=== PATIENT | female | born 1975 | race African-American/Black ===

== ENCOUNTER 2023-01-16 20:35 | Emergency (ER) | payer MEDICAID, OTHER ==
[~2023-01-16] VITALS: Ht 170.2 cm; Wt 90.5 kg
[2023-01-16] MEDS ORDERED: ACETAMINOPHEN 325MG TABLET PO ONE (23:00)
[2023-01-16 23:30] VITALS: BP 144/103
[2023-01-16] MEDS ORDERED: CLONIDINE 0.2MG TABLET PO ONE (23:30)
[2023-01-17] MEDS ORDERED: TOPUD MT (01:09)
== END 2023-01-17 01:39 | disposition home or self-care (01) ==
LOC: ER 20:35
DX: R51.9 Headache, unspecified (principal); R07.89 Other chest pain; I10 Essential (primary) hypertension; Z98.890 Other specified postprocedural states; Z91.010 Allergy to peanuts; Y04.0XXA Assault by unarmed brawl or fight, initial encounter; Y93.89 Activity, other specified; Y92.89 Other specified places as the place of occurrence of the external cause; Y99.8 Other external cause status
CPT/HCPCS: 99283

== ENCOUNTER 2023-12-13 09:16 | Emergency (ER) | payer MEDICAID ==
[~2023-12-13] VITALS: Ht 170.2 cm; Wt 82.0 kg
[~2023-12-13 09:16] MED LIST: TOPUD MT
[2023-12-13 09:20] VITALS: O2SAT 94
[2023-12-13 09:51] VITALS: PULSE 96; RESP 20
[2023-12-13] MEDS: IPRATROPIUM/ALBUTEROL 0.5-3(2.5)MG/3ML NEB HHN ONE (09:51)
[2023-12-13 10:05] VITALS: PULSE 100; RESP 20
[2023-12-13] MEDS: ALBUTEROL (0.083%) 2.5MG/3ML NEB HHN ONE (10:05)
[2023-12-13] MEDS ORDERED: T3 PO (10:09)
[2023-12-13] MEDS: DEXAMETHASONE 4MG/ML 1ML VIAL IM ONE (10:40)
[2023-12-13 11:00] VITALS: BP 122/78; PULSE 69; RESP 17; TEMP 98.2
[2023-12-13] MEDS ORDERED: ALBU6.7H15 INH (11:01)
[2023-12-13] MEDS ORDERED: BUDE6.9H INH (11:01)
[2023-12-13] MEDS ORDERED: P50 MT (11:01)
== END 2023-12-13 11:24 | disposition home or self-care (01) ==
LOC: ER 09:16
DX: R06.02 Shortness of breath (principal); F41.9 Anxiety disorder, unspecified; I10 Essential (primary) hypertension
CPT/HCPCS: 94640; 93005; 96372; 99283; J1100; Z7610 ×3

== ENCOUNTER 2024-03-28 19:32 | Emergency (ER) | payer MEDICAID ==
[~2024-03-28] VITALS: Ht 170.2 cm; Wt 76.0 kg
[~2024-03-28 19:32] MED LIST changes: +ALBU6.7H15 INH; +ALD50 PO; +ASPI-1406 PO; +BUDE6.9H INH; +CLOP-31 PO; +FURO-151 MT; +LIP40 PO; +METO25TA6 MT; +POTA-205 MT; -TOPUD MT
[2024-03-28 19:42] VITALS: BP 133/97; PULSE 92; RESP 16; TEMP 98.1; O2SAT 100
== END 2024-03-28 20:43 | disposition home or self-care (01) ==
LOC: ER 19:41
DX: Z13.89 Encounter for screening for other disorder (principal); I10 Essential (primary) hypertension; Z86.73 Personal history of transient ischemic attack (TIA), and cerebral infarction without residual deficits; Z98.890 Other specified postprocedural states; Z91.010 Allergy to peanuts
CPT/HCPCS: 99281

== ENCOUNTER 2024-04-03 19:18 | Emergency (ER) | payer MEDICAID ==
[~2024-04-03] VITALS: Ht 170.2 cm; Wt 67.0 kg
[2024-04-03 19:30] VITALS: O2SAT 100
[2024-04-03 20:00] VITALS: TEMP 36.78072
[2024-04-03 20:26] LABS: CHLORIDE 103 mEq/L (98-107); POTASSIUM 3.5 mEq/L (3.5-5.1); SODIUM 139 mEq/L (136-145)
[2024-04-03 20:27] LABS: CARBON DIOXIDE 30 mEq/L (21-32)
[2024-04-03 20:28] LABS: CALCIUM 10.4 mg/dL (8.7-10.4)
[2024-04-03 20:32] LABS: BASOPHILS % 0.9 % (0.0-2.0); CREATININE 0.9 mg/dL (0.6-1.0); GLUCOSE 81 mg/dL (70-105); HEMATOCRIT. 44.3 % (36.0-48.0); HEMOGLOBIN. 14.7 g/dL (12.0-16.0); LYMPHOCYTES % 48.8 % (20.0-50.0); MEAN CORPUSCULAR HEMOGLOBIN 28.8 pg (28.0-32.0); MEAN CORPUSCULAR HGB CONC 33.2 g/dL (31.0-37.0); MEAN CORPUSCULAR VOLUME 86.5 fL (81.0-99.0); MEAN PLATELET VOLUME 9.3 fl (7.4-10.4); MONOCYTES % 8.4 % (2.0-8.0); NEUTROPHILS % 37.9 % (40.0-76.0); PLATELET 191 x1000/uL (130-400); RED BLOOD CELL COUNT 5.12 mill/uL (4.2-5.4); RED CELL DISTRIBUTION WIDTH 13.3 % (11.6-14.6); WHITE BLOOD COUNT 3.5 x1000/uL (4.5-11.0)
[2024-04-03 20:33] LABS: TROPONIN I HIGH SENSITIVITY 11 ng/L (3.0-34)
[2024-04-03 20:35] LABS: PHOSPHORUS 3.8 mg/dL (2.5-4.9)
[2024-04-03 20:48] LABS: UREA NITROGEN BLOOD < 5 mg/dL (9-23)
[2024-04-03] MEDS: SODIUM CHLORIDE 0.9% 1,000 ML IV ONE (20:50)
[2024-04-03 23:30] VITALS: BP 110/105; PULSE 87; RESP 18; O2SAT 100
== END 2024-04-03 23:44 | disposition home or self-care (01) ==
LOC: ER 19:18
DX: R00.0 Tachycardia, unspecified (principal); I10 Essential (primary) hypertension; Z91.010 Allergy to peanuts; Z79.899 Other long term (current) drug therapy
CPT/HCPCS: 80048; 83880; 83735; 84100; 85025; 84484; 36415; 93005; 96360; 99284; J7030; Z7610 ×2

== ENCOUNTER 2024-04-14 22:19 | Emergency (ER) | payer MEDICAID, OTHER ==
[~2024-04-14] VITALS: Ht 172.7 cm; Wt 74.8 kg
[2024-04-14 22:36] VITALS: O2SAT 99
[2024-04-15] MEDS: GLUCAGON,HUMAN RECOMBINANT 1MG/VIAL IM ONE (00:04)
[2024-04-15] MEDS: GLUCAGON,HUMAN RECOMBINANT 1MG/VIAL IM NR (00:04)
[2024-04-15 00:57] LABS: TROPONIN I HIGH SENSITIVITY 11 ng/L (3.0-34)
[2024-04-15 02:15] VITALS: BP 128/77; PULSE 78; RESP 20; TEMP 36.66960; O2SAT 100
== END 2024-04-15 02:30 | disposition home or self-care (01) ==
LOC: ER 22:19
DX: R00.1 Bradycardia, unspecified (principal); I11.0 Hypertensive heart disease with heart failure; I50.9 Heart failure, unspecified; Z79.82 Long term (current) use of aspirin; Z91.010 Allergy to peanuts; Z86.73 Personal history of transient ischemic attack (TIA), and cerebral infarction without residual deficits; Z79.899 Other long term (current) drug therapy
CPT/HCPCS: 99285; 71045; 93005; 84484; 36415; 96372; J1610

== ENCOUNTER 2024-04-15 10:13 | Emergency (ER) | payer OTHER ==
[~2024-04-15] VITALS: Ht 172.7 cm; Wt 67.0 kg
[2024-04-15 10:17] VITALS: O2SAT 95
[2024-04-15 10:23] VITALS: BP 136/88; PULSE 74; RESP 18; TEMP 98; O2SAT 99
== END 2024-04-15 11:02 | disposition left against medical advice (07) ==
LOC: ER 10:13
DX: I10 Essential (primary) hypertension (principal); Z53.21 Procedure and treatment not carried out due to patient leaving prior to being seen by health care provider

== ENCOUNTER 2024-04-16 23:23 | Emergency (ER) | payer MEDICAID, OTHER ==
[~2024-04-16] VITALS: Ht 172.7 cm; Wt 73.0 kg
[2024-04-16 23:54] VITALS: O2SAT 100
[2024-04-17 01:20] LABS: EOSINOPHILS % 4.9 % (0.0-5.0); HEMATOCRIT. 43.9 % (36.0-48.0); HEMOGLOBIN. 14.5 g/dL (12.0-16.0); MEAN CORPUSCULAR HEMOGLOBIN 28.7 pg (28.0-32.0); MEAN CORPUSCULAR HGB CONC 33.2 g/dL (31.0-37.0); MEAN CORPUSCULAR VOLUME 86.5 fL (81.0-99.0); MEAN PLATELET VOLUME 8.8 fl (7.4-10.4); MONOCYTES % 9.8 % (2.0-8.0); NEUTROPHILS % 32.3 % (40.0-76.0); PLATELET 195 x1000/uL (130-400); RED BLOOD CELL COUNT 5.07 mill/uL (4.2-5.4); RED CELL DISTRIBUTION WIDTH 13.6 % (11.6-14.6); WHITE BLOOD COUNT 4.2 x1000/uL (4.5-11.0)
[2024-04-17 01:27] LABS: CARBON DIOXIDE 29 mEq/L (21-32); CHLORIDE 105 mEq/L (98-107); POTASSIUM 3.7 mEq/L (3.5-5.1); SODIUM 139 mEq/L (136-145)
[2024-04-17 01:28] LABS: CALCIUM 10.6 mg/dL (8.7-10.4)
[2024-04-17 01:32] LABS: CREATININE 0.9 mg/dL (0.6-1.0); GLUCOSE 78 mg/dL (70-105)
[2024-04-17 01:33] LABS: UREA NITROGEN BLOOD 6 mg/dL (9-23)
[2024-04-17 01:34] LABS: ALANINE AMINOTRANSFERASE 23 IU/L (10-49); ASPARTATE AMINOTRANSFERASE 22 IU/L (<34)
[2024-04-17 01:35] LABS: ALBUMIN 4.5 g/dL (3.2-4.8); BILIRUBIN TOTAL 0.7 mg/dL (0.1-1.0); PROTEIN TOTAL 7.4 g/dL (6.0-8.3)
[2024-04-17 05:01] VITALS: BP 153/98; PULSE 88; RESP 19; TEMP 36.89184; O2SAT 100
== END 2024-04-17 05:02 | disposition home or self-care (01) ==
LOC: ER 23:23
DX: R51.9 Headache, unspecified (principal); I11.0 Hypertensive heart disease with heart failure; I50.9 Heart failure, unspecified; Z79.899 Other long term (current) drug therapy
CPT/HCPCS: 36415; 80053; 85025; 99283

== ENCOUNTER 2024-05-18 10:17 | Emergency (ER) | payer MEDICAID ==
[~2024-05-18] VITALS: Ht 175.3 cm; Wt 75.0 kg
[2024-05-18 10:27] VITALS: BP 113/76; O2SAT 100
[2024-05-18 11:01] LABS: EOSINOPHILS % 3.3 % (0.0-5.0); HEMATOCRIT. 37.7 % (36.0-48.0); HEMOGLOBIN. 12.9 g/dL (12.0-16.0); LYMPHOCYTES % 31.2 % (20.0-50.0); MEAN CORPUSCULAR HEMOGLOBIN 29.2 pg (28.0-32.0); MEAN CORPUSCULAR HGB CONC 34.3 g/dL (31.0-37.0); MEAN CORPUSCULAR VOLUME 84.9 fL (81.0-99.0); MEAN PLATELET VOLUME 8.3 fl (7.4-10.4); MONOCYTES % 11.3 % (2.0-8.0); NEUTROPHILS % 53.2 % (40.0-76.0); PLATELET 233 x1000/uL (130-400); RED BLOOD CELL COUNT 4.43 mill/uL (4.2-5.4); RED CELL DISTRIBUTION WIDTH 14.3 % (11.6-14.6); WHITE BLOOD COUNT 3.8 x1000/uL (4.5-11.0)
[2024-05-18 11:08] LABS: CARBON DIOXIDE 34 mEq/L (21-32); CHLORIDE 96 mEq/L (98-107); POTASSIUM 2.9 mEq/L (3.5-5.1); SODIUM 135 mEq/L (136-145)
[2024-05-18 11:09] LABS: CALCIUM 9.8 mg/dL (8.7-10.4)
[2024-05-18 11:13] LABS: CREATININE 1.2 mg/dL (0.6-1.0)
[2024-05-18 11:14] LABS: GLUCOSE 84 mg/dL (70-105); UREA NITROGEN BLOOD 13 mg/dL (9-23)
[2024-05-18 11:15] LABS: ALANINE AMINOTRANSFERASE 24 IU/L (10-49); ASPARTATE AMINOTRANSFERASE 27 IU/L (<34)
[2024-05-18 11:16] LABS: ALBUMIN 4.2 g/dL (3.2-4.8); BILIRUBIN DIRECT 0.2 mg/dL (<=3.0); BILIRUBIN TOTAL 0.8 mg/dL (0.1-1.0); PROTEIN TOTAL 7.4 g/dL (6.0-8.3); TROPONIN I HIGH SENSITIVITY 7 ng/L (3.0-34)
[2024-05-18 11:20] LABS: T4 FREE 1.35 ng/dL (0.89-1.76); THYROID STIMULATING HORMONE 0.74 uIU/mL (0.55-4.78)
[2024-05-18] MEDS: POTASSIUM CHLORIDE 20MEQ/PACKET PO ONE (11:59)
[2024-05-18 12:45] LABS: CLARITY URINE CLEAR (CLEAR); COLOR URINE YELLOW (YELLOW); GLUCOSE URINE NEGATIVE (NEGATIVE); KETONES URINE NEGATIVE (NEGATIVE); LEUKOCYTE ESTERASE URINE NEGATIVE (NEGATIVE); NITRITE URINE NEGATIVE (NEGATIVE); OCCULT BLOOD URINE NEGATIVE (NEGATIVE); PROTEIN URINE NEGATIVE (NEGATIVE); SPECIFIC GRAVITY URINE 1.006 (1.005-1.030); UROBILINOGEN URINE 0.2 E.U./dL (0.2-1.0)
[2024-05-18 13:14] LABS: *AMPHETAMINES SCREEN URINE NEGATIVE (NEGATIVE); *BARBITURATES SCREEN URINE NEGATIVE (NEGATIVE); *BENZODIAZEPINES SCREEN URINE NEGATIVE (NEGATIVE); *COCAINE SCREEN URINE NEGATIVE (NEGATIVE); METHADONE URINE SCREEN NEGATIVE (NEGATIVE); OPIATES URINE SCREEN NEGATIVE (NEGATIVE)
[2024-05-18 13:15] LABS: CANNABINOID URINE SCREEN NEGATIVE (NEGATIVE); ECSTASY MDMA SCREEN URINE NEGATIVE (NEGATIVE); PHENCYCLIDINE URINE SCREEN NEGATIVE (NEGATIVE)
[2024-05-18 13:31] LABS: TROPONIN I HIGH SENSITIVITY 7 ng/L (3.0-34)
[2024-05-18] MEDS: SODIUM CHLORIDE 0.9% 500 ML IV ONE (13:54)
[2024-05-18 16:23] VITALS: PULSE 80; RESP 18; TEMP 36.72516; O2SAT 100
== END 2024-05-18 16:25 | disposition home or self-care (01) ==
LOC: ER 10:17
DX: R00.2 Palpitations (principal); I11.0 Hypertensive heart disease with heart failure; I50.9 Heart failure, unspecified; Z90.710 Acquired absence of both cervix and uterus; Z79.899 Other long term (current) drug therapy
CPT/HCPCS: 80076; 80305; 80048; 81003; 81025; 84439; 84443; 85025; 85379; 84484; 36415; 71045; 93005; 96360; 96361; 99285; J7040; Z7610

== ENCOUNTER 2024-05-24 06:50 | Emergency (ER) | payer MEDICAID ==
[~2024-05-24] VITALS: Ht 172.7 cm; Wt 70.3 kg
[2024-05-24 07:09] VITALS: BP 118/78; O2SAT 100
[2024-05-24 08:32] LABS: HEMATOCRIT 37.4 % (36.0-48.0); HEMOGLOBIN 12.2 g/dL (12.0-16.0); MEAN CORPUSCULAR HEMOGLOBIN 28.4 pg (28.0-32.0); MEAN CORPUSCULAR HGB CONC 32.6 g/dL (31.0-37.0); MEAN CORPUSCULAR VOLUME 86.9 fL (81.0-99.0); PLATELET 228 x1000/uL (130-400); RED BLOOD CELL COUNT 4.31 mill/uL (4.2-5.4); RED CELL DISTRIBUTION WIDTH 15.7 % (11.6-14.6); WHITE BLOOD COUNT 4.5 x1000/uL (4.5-11.0)
[2024-05-24 08:43] LABS: CHLORIDE 105 mEq/L (98-107); POTASSIUM 4.3 mEq/L (3.5-5.1); SODIUM 139 mEq/L (136-145)
[2024-05-24 08:44] LABS: CARBON DIOXIDE 29 mEq/L (21-32)
[2024-05-24 08:45] LABS: CALCIUM 9.8 mg/dL (8.7-10.4)
[2024-05-24 08:49] LABS: CREATININE 1.1 mg/dL (0.6-1.0); GLUCOSE 85 mg/dL (70-105); UREA NITROGEN BLOOD 14 mg/dL (9-23)
[2024-05-24 08:59] LABS: HCG SCREEN NEGATIVE
[2024-05-24 10:00] VITALS: PULSE 83; RESP 20; TEMP 36.83628; O2SAT 100
== END 2024-05-24 10:13 | disposition home or self-care (01) ==
LOC: ER 06:59
DX: R00.2 Palpitations (principal); T50.905A Adverse effect of unspecified drugs, medicaments and biological substances, initial encounter; I11.0 Hypertensive heart disease with heart failure; I50.9 Heart failure, unspecified; Z76.0 Encounter for issue of repeat prescription; Z79.899 Other long term (current) drug therapy; Z88.8 Allergy status to other drugs, medicaments and biological substances; Z90.710 Acquired absence of both cervix and uterus; Z98.890 Other specified postprocedural states
CPT/HCPCS: 36415; 80048; 83735; 84703; 85027; 93005; 99284

== ENCOUNTER 2024-07-23 17:45 | Emergency (ER) | payer MEDICAID ==
[~2024-07-23] VITALS: Ht 170.2 cm; Wt 68.0 kg
[2024-07-23 17:47] VITALS: BP 147/99; PULSE 91; RESP 18; TEMP 98.9; O2SAT 100; O2SAT 99
[2024-07-23] MEDS ORDERED: CETI10TA6 MT (20:48)
[2024-07-23] MEDS ORDERED: NYST15OI4 TP (20:48)
== END 2024-07-23 21:13 | disposition home or self-care (01) ==
LOC: ER 17:45
DX: K13.0 Diseases of lips (principal); I11.0 Hypertensive heart disease with heart failure; I50.9 Heart failure, unspecified; Z79.899 Other long term (current) drug therapy; Z90.710 Acquired absence of both cervix and uterus; Z98.890 Other specified postprocedural states; Z91.010 Allergy to peanuts; Z91.041 Radiographic dye allergy status
CPT/HCPCS: 99283

== ENCOUNTER 2024-08-01 09:23 | Emergency (ER) | payer MEDICAID ==
[~2024-08-01] VITALS: Ht 170.2 cm; Wt 68.3 kg
[~2024-08-01 09:23] MED LIST changes: +CETI10TA6 MT; +NYST15OI4 TP
[2024-08-01 10:09] VITALS: O2SAT 100
[2024-08-01 11:45] LABS: HEMATOCRIT. 35.6 % (36.0-48.0); HEMOGLOBIN. 11.9 g/dL (12.0-16.0); MEAN CORPUSCULAR HEMOGLOBIN 30.8 pg (28.0-32.0); MEAN CORPUSCULAR HGB CONC 33.4 g/dL (31.0-37.0); MEAN CORPUSCULAR VOLUME 92.3 fL (81.0-99.0); MEAN PLATELET VOLUME 8.5 fl (7.4-10.4); PLATELET 224 x1000/uL (130-400); RED BLOOD CELL COUNT 3.85 mill/uL (4.2-5.4); RED CELL DISTRIBUTION WIDTH 14.4 % (11.6-14.6); WHITE BLOOD COUNT 5.1 x1000/uL (4.5-11.0)
[2024-08-01 12:00] LABS: DIFFERENTIAL COMMENT 1
[2024-08-01 12:19] LABS: CARBON DIOXIDE 29 mEq/L (21-32); CHLORIDE 107 mEq/L (98-107); POTASSIUM 3.9 mEq/L (3.5-5.1); SODIUM 143 mEq/L (136-145)
[2024-08-01 12:20] LABS: CALCIUM 9.4 mg/dL (8.7-10.4)
[2024-08-01 12:25] LABS: GLUCOSE 75 mg/dL (70-105); UREA NITROGEN BLOOD 9 mg/dL (9-23)
[2024-08-01 12:41] LABS: PLATELET ESTIMATE NORMAL
[2024-08-01 13:16] LABS: CLARITY URINE CLEAR (CLEAR); COLOR URINE YELLOW (YELLOW); GLUCOSE URINE NEGATIVE (NEGATIVE); KETONES URINE NEGATIVE (NEGATIVE); LEUKOCYTE ESTERASE URINE 1+ (NEGATIVE); NITRITE URINE NEGATIVE (NEGATIVE); OCCULT BLOOD URINE NEGATIVE (NEGATIVE); PH URINE 5.5 (4.5-8.0); PROTEIN URINE NEGATIVE (NEGATIVE); SPECIFIC GRAVITY URINE 1.007 (1.005-1.030); UROBILINOGEN URINE 0.2 E.U./dL (0.2-1.0)
[2024-08-01 13:26] VITALS: BP 134/82; PULSE 78; RESP 16; TEMP 36.83628; O2SAT 100
[2024-08-01 13:39] LABS: SQUAMOUS EPITHELIAL CELL URINE 1+ /lpf (RARE/1+)
[2024-08-01 13:40] LABS: TRICHOMONAS URINE 1+
[2024-08-01 13:41] LABS: BACTERIA URINE TRACE
[2024-08-01 13:42] LABS: RBC URINE 0-2 /hpf (0-2); WBC URINE 0-2 /hpf (0-2)
== END 2024-08-01 13:28 | disposition home or self-care (01) ==
LOC: ER 09:35
DX: Z00.00 Encounter for general adult medical examination without abnormal findings (principal); I50.9 Heart failure, unspecified; Z91.041 Radiographic dye allergy status; Z88.8 Allergy status to other drugs, medicaments and biological substances; Z79.899 Other long term (current) drug therapy; Z79.82 Long term (current) use of aspirin; Z79.51 Long term (current) use of inhaled steroids; Z79.02 Long term (current) use of antithrombotics/antiplatelets
CPT/HCPCS: 36415; 80048; 81003; 81025; 85025; 99283

== ENCOUNTER 2024-08-05 08:38 | Emergency (ER) | payer MEDICAID ==
[~2024-08-05] VITALS: Ht 170.2 cm; Wt 68.0 kg
[2024-08-05 08:48] VITALS: TEMP 98.6; O2SAT 100
[2024-08-05 10:35] VITALS: BP 135/88; PULSE 72; RESP 16; O2SAT 100
== END 2024-08-05 10:44 | disposition home or self-care (01) ==
LOC: ER 08:38
DX: I10 Essential (primary) hypertension (principal); Z76.0 Encounter for issue of repeat prescription; Z79.899 Other long term (current) drug therapy; Z91.041 Radiographic dye allergy status; Z88.8 Allergy status to other drugs, medicaments and biological substances
CPT/HCPCS: 99281

== ENCOUNTER 2024-08-10 11:48 | Emergency (ER) | payer MEDICAID ==
[~2024-08-10] VITALS: Ht 170.2 cm; Wt 68.0 kg
[2024-08-10 11:51] VITALS: O2SAT 100
[2024-08-10 12:06] VITALS: BP 149/98; PULSE 76; RESP 16; TEMP 98; O2SAT 100
== END 2024-08-10 13:43 | disposition home or self-care (01) ==
LOC: ER 11:53
DX: I11.0 Hypertensive heart disease with heart failure (principal); I50.9 Heart failure, unspecified; Z88.8 Allergy status to other drugs, medicaments and biological substances; Z91.010 Allergy to peanuts; Z79.899 Other long term (current) drug therapy; Z79.82 Long term (current) use of aspirin; Z86.73 Personal history of transient ischemic attack (TIA), and cerebral infarction without residual deficits; Z98.890 Other specified postprocedural states
CPT/HCPCS: 99281

== ENCOUNTER 2024-09-06 11:09 | Emergency (ER) | payer MEDICAID ==
[~2024-09-06] VITALS: Ht 172.7 cm; Wt 68.0 kg
[2024-09-06 11:15] VITALS: O2SAT 99
[2024-09-06 11:20] VITALS: BP 165/95; PULSE 72; RESP 16; TEMP 98.6; O2SAT 100
[2024-09-06 11:42] LABS: HEMATOCRIT. 39.8 % (36.0-48.0); HEMOGLOBIN. 13.2 g/dL (12.0-16.0); MEAN CORPUSCULAR HEMOGLOBIN 29.8 pg (28.0-32.0); MEAN CORPUSCULAR HGB CONC 33.1 g/dL (31.0-37.0); MEAN CORPUSCULAR VOLUME 90.1 fL (81.0-99.0); MEAN PLATELET VOLUME 8.2 fl (7.4-10.4); PLATELET 245 x1000/uL (130-400); RED BLOOD CELL COUNT 4.42 mill/uL (4.2-5.4); RED CELL DISTRIBUTION WIDTH 13.5 % (11.6-14.6); WHITE BLOOD COUNT 3.9 x1000/uL (4.5-11.0)
[2024-09-06 11:46] LABS: DIFFERENTIAL COMMENT 1
[2024-09-06 11:59] LABS: CHLORIDE 108 mEq/L (98-107); POTASSIUM 3.7 mEq/L (3.5-5.1); SODIUM 144 mEq/L (136-145)
[2024-09-06 12:00] LABS: CARBON DIOXIDE 27 mEq/L (21-32)
[2024-09-06 12:01] LABS: CALCIUM 9.5 mg/dL (8.7-10.4)
[2024-09-06 12:05] LABS: GLUCOSE 84 mg/dL (70-105); UREA NITROGEN BLOOD 11 mg/dL (9-23)
[2024-09-06 12:06] LABS: TROPONIN I HIGH SENSITIVITY 4 ng/L (3.0-34)
[2024-09-06 13:02] LABS: PLATELET ESTIMATE NORMAL
[2024-09-06 15:09] LABS: TROPONIN I HIGH SENSITIVITY 5 ng/L (3.0-34)
[2024-09-06 16:22] LABS: TROPONIN I HIGH SENSITIVITY 5 ng/L (3.0-34)
== END 2024-09-06 17:25 | disposition left against medical advice (07) ==
LOC: ER 11:09 → EDBEDREQ 15:30 → EDBEDREQTM 15:30 → ER 17:25
DX: R07.89 Other chest pain (principal); I50.9 Heart failure, unspecified; I11.0 Hypertensive heart disease with heart failure; Z79.899 Other long term (current) drug therapy; Z86.73 Personal history of transient ischemic attack (TIA), and cerebral infarction without residual deficits; Z88.8 Allergy status to other drugs, medicaments and biological substances; Z91.041 Radiographic dye allergy status
CPT/HCPCS: 36415; 71045; 80048; 83735; 83880; 84484; 85025; 93005; 99285

== ENCOUNTER 2024-12-23 18:39 | Emergency (ER) | payer MEDICAID ==
[~2024-12-23] VITALS: Ht 170.2 cm; Wt 69.4 kg
[2024-12-23 19:00] LABS: BASOPHILS % 0.9 % (0.0-2.0); EOSINOPHILS % 5.3 % (0.0-5.0); HEMATOCRIT. 40.6 % (36.0-48.0); HEMOGLOBIN. 13.5 g/dL (12.0-16.0); LYMPHOCYTES % 43.9 % (20.0-50.0); MEAN CORPUSCULAR HEMOGLOBIN 29.1 pg (28.0-32.0); MEAN CORPUSCULAR HGB CONC 33.3 g/dL (31.0-37.0); MEAN CORPUSCULAR VOLUME 87.6 fL (81.0-99.0); MEAN PLATELET VOLUME 9.1 fl (7.4-10.4); MONOCYTES % 8.5 % (2.0-8.0); NEUTROPHILS % 41.4 % (40.0-76.0); PLATELET 202 x1000/uL (130-400); RED BLOOD CELL COUNT 4.64 mill/uL (4.2-5.4); RED CELL DISTRIBUTION WIDTH 14.3 % (11.6-14.6); WHITE BLOOD COUNT 3.9 x1000/uL (4.5-11.0)
[2024-12-23 19:08] LABS: CHLORIDE 102 mEq/L (98-107); POTASSIUM 3.7 mEq/L (3.5-5.1); SODIUM 142 mEq/L (136-145)
[2024-12-23 19:09] LABS: CARBON DIOXIDE 33 mEq/L (21-32)
[2024-12-23 19:10] LABS: CALCIUM 9.3 mg/dL (8.7-10.4)
[2024-12-23 19:13] VITALS: O2SAT 100
[2024-12-23 19:14] LABS: GLUCOSE 103 mg/dL (70-105); UREA NITROGEN BLOOD 17 mg/dL (9-23)
[2024-12-23 19:17] LABS: TROPONIN I HIGH SENSITIVITY 4 ng/L (3.0-34)
[2024-12-23] MEDS: ACETAMINOPHEN 325MG TABLET PO STA (20:13)
[2024-12-23 23:03] LABS: TROPONIN I HIGH SENSITIVITY 6 ng/L (3.0-34)
[2024-12-23 23:47] VITALS: BP 148/90; PULSE 74; RESP 14; TEMP 36.7; O2SAT 100
== END 2024-12-24 00:17 | disposition home or self-care (01) ==
LOC: ER 18:39
DX: R07.89 Other chest pain (principal); I11.0 Hypertensive heart disease with heart failure; I50.9 Heart failure, unspecified; Z79.899 Other long term (current) drug therapy; Z79.82 Long term (current) use of aspirin; Z79.51 Long term (current) use of inhaled steroids; Z79.02 Long term (current) use of antithrombotics/antiplatelets; Z86.73 Personal history of transient ischemic attack (TIA), and cerebral infarction without residual deficits; Z98.890 Other specified postprocedural states; Z91.041 Radiographic dye allergy status; Z88.8 Allergy status to other drugs, medicaments and biological substances; Z91.010 Allergy to peanuts
CPT/HCPCS: 36415; 71045; 80048; 84484; 85025; 93005; 99285

== ENCOUNTER 2024-12-31 21:19 | Emergency (ER) | payer MEDICAID ==
[~2024-12-31] VITALS: Ht 170.2 cm; Wt 69.0 kg
[2024-12-31 21:47] VITALS: BP 141/95; TEMP 36.7; O2SAT 100
[2024-12-31 21:51] VITALS: PULSE 97; RESP 16; O2SAT 100
== END 2025-01-01 03:50 | disposition home or self-care (01) ==
LOC: ER 21:19
DX: M54.50 Low back pain, unspecified (principal); I11.0 Hypertensive heart disease with heart failure; I50.9 Heart failure, unspecified; Z00.00 Encounter for general adult medical examination without abnormal findings; Z88.8 Allergy status to other drugs, medicaments and biological substances; Z79.899 Other long term (current) drug therapy; Z91.041 Radiographic dye allergy status; Z79.82 Long term (current) use of aspirin; Z98.890 Other specified postprocedural states; Z86.73 Personal history of transient ischemic attack (TIA), and cerebral infarction without residual deficits
CPT/HCPCS: 72100; 81025; 99283

== ENCOUNTER 2025-01-03 22:49 | Emergency (ER) | payer MEDICAID ==
[~2025-01-03] VITALS: Ht 170.2 cm; Wt 69.0 kg
[2025-01-03 23:15] VITALS: O2SAT 100
[2025-01-04 00:37] LABS: BASOPHILS % 1.1 % (0.0-2.0); EOSINOPHILS % 5.5 % (0.0-5.0); HEMATOCRIT. 41.1 % (36.0-48.0); HEMOGLOBIN. 13.7 g/dL (12.0-16.0); LYMPHOCYTES % 48.1 % (20.0-50.0); MEAN CORPUSCULAR HEMOGLOBIN 29.2 pg (28.0-32.0); MEAN CORPUSCULAR HGB CONC 33.3 g/dL (31.0-37.0); MEAN CORPUSCULAR VOLUME 87.7 fL (81.0-99.0); MONOCYTES % 6.7 % (2.0-8.0); NEUTROPHILS % 38.6 % (40.0-76.0); PLATELET 217 x1000/uL (130-400); RED BLOOD CELL COUNT 4.69 mill/uL (4.2-5.4); RED CELL DISTRIBUTION WIDTH 14.3 % (11.6-14.6); WHITE BLOOD COUNT 4.3 x1000/uL (4.5-11.0)
[2025-01-04 00:45] LABS: CHLORIDE 104 mEq/L (98-107); POTASSIUM 3.7 mEq/L (3.5-5.1); SODIUM 139 mEq/L (136-145)
[2025-01-04 00:46] LABS: CARBON DIOXIDE 31 mEq/L (21-32)
[2025-01-04 00:47] LABS: CALCIUM 9.9 mg/dL (8.7-10.4)
[2025-01-04] MEDS: MECLIZINE 25MG TABLET PO ONE (00:47)
[2025-01-04 00:51] LABS: GLUCOSE 88 mg/dL (70-105); HCG SCREEN NEGATIVE
[2025-01-04 00:52] LABS: TROPONIN I HIGH SENSITIVITY 6 ng/L (3.0-34); UREA NITROGEN BLOOD 14 mg/dL (9-23)
[2025-01-04 02:45] VITALS: TEMP 36.9
[2025-01-04] MEDS ORDERED: MECL-299 MT (03:08)
[2025-01-04 03:17] VITALS: BP 141/90; PULSE 68; RESP 17; O2SAT 99
== END 2025-01-04 03:20 | disposition home or self-care (01) ==
LOC: ER 22:49
DX: R42 Dizziness and giddiness (principal); I50.9 Heart failure, unspecified; Z86.73 Personal history of transient ischemic attack (TIA), and cerebral infarction without residual deficits; Z79.899 Other long term (current) drug therapy; Z88.8 Allergy status to other drugs, medicaments and biological substances; Z91.041 Radiographic dye allergy status; Z79.82 Long term (current) use of aspirin; Z79.51 Long term (current) use of inhaled steroids; Z79.02 Long term (current) use of antithrombotics/antiplatelets
CPT/HCPCS: 36415; 71045; 80048; 80320; 83880; 84484; 84703; 85025; 93005; 99285; G0480